=== PATIENT | male | born 1950 | race Caucasian/White ===

== ENCOUNTER → 2018-03-16 | Outpatient (CLI) | payer MEDICARE | END | disposition home or self-care (01) | LOC: SHCH 13:10 | PROVIDERS: ATTEND Internal Medicine Cardiovascular Disease | DX: I08.1 Rheumatic disorders of both mitral and tricuspid valves (principal); I11.9 Hypertensive heart disease without heart failure; Z95.2 Presence of prosthetic heart valve; Z95.1 Presence of aortocoronary bypass graft | CPT/HCPCS: 93306 ==

== ENCOUNTER 2018-05-11 12:15 | Observation (INO) | payer MEDICARE ==
[~2018-05-11] VITALS: Ht 175.3 cm; Wt 97.1 kg
[2018-05-11] MEDS ORDERED: ASPIRIN 325 MG TABLET ONE (12:22)
[2018-05-11] MEDS ORDERED: ASPIRIN 325MG EC TAB 325 MG TABLET.DR PO ONE (12:24)
[2018-05-11 12:43] LABS: BASOPHILS % (AUTO) 0.6 % (0.0-5.0); EOSINOPHILS % (AUTO) 4.9 % (0.0-8.0); HEMATOCRIT 43.1 % (42-54); MEAN CORPUSCULAR HEMOGLOBIN 28.9 pg (27.0-33.0); MEAN CORPUSCULAR HGB CONC 33.3 g/dL (32.0-36.0); MEAN CORPUSCULAR VOLUME 86.9 fL (79-99); MONOCYTES % (AUTO) 11.4 % (3.0-13.0); NEUTROPHILS % (AUTO) 62.1 % (40.0-77.0); NUCLEATED RED BLOOD CELLS 0.1 % (0.0-0.19); PLATELET COUNT (AUTO) 254 K/uL (130-400); RED BLOOD CELL COUNT(AUTO) 4.96 MIL/uL (4.50-6.20); RED CELL DISTRIBUTION WIDTH 15.9 % (11.0-15.5); WHITE BLOOD COUNT (AUTO) 8.8 K/uL (4.8-10.8)
[2018-05-11 12:55] LABS: CREATININE 2.3 mg/dL (0.5-1.5); POTASSIUM 4.1 mmol/L (3.5-5.1)
[2018-05-11 13:07] LABS: ALBUMIN 3.8 g/dL (3.5-5.0); BILIRUBIN,TOTAL 0.4 mg/dL (0.2-1.0); TOTAL PROTEIN, SERUM 7.9 g/dL (6.0-8.3)
[2018-05-11 13:14] LABS: INR 1.61 (0.85-1.15); PARTIAL THROMBOPLASTIN TIME 34.7 SEC (26.3-35.5); PROTHROMBIN TIME 16.7 SEC (9.6-11.6)
[2018-05-11] MEDS ORDERED: ENOXAPARIN SODIUM 100 MG/1 ML SQ ONE (15:16)
[2018-05-11] MEDS ORDERED: SODIUM CHLORIDE 0.9% 1000ML 1,000 ML IV SCH (15:16)
[2018-05-11] MEDS ORDERED: HYDRALAZINE HCL 20 MG/ML VIAL ONE (15:17)
[2018-05-11] MEDS ORDERED: ACETAMINOPHEN 325 MG TAB PO PRN ×2 (15:30)
[2018-05-11] MEDS ORDERED: MORPHINE SULFATE 2 MG/ML 1ML SYG IV PRN (15:30)
[2018-05-11] MEDS ORDERED: LACTULOSE 20 GM/30 ML UDCUP PO PRN (15:30)
[2018-05-11] MEDS ORDERED: HYDRALAZINE HCL 20 MG/ML VIAL IV PRN (15:30)
[2018-05-11] MEDS ORDERED: MORPHINE SULFATE 2 MG/ML 1ML SYG ONE ×2 (15:59→23:34)
[2018-05-11] MEDS ORDERED: NITROGLYCERIN 1GM/1 INCH PACKET TD ONE (15:59)
[2018-05-11] MEDS ORDERED: ONDANSETRON HCL 4 MG/2 ML VIAL ONE (15:59)
[2018-05-11] MEDS ORDERED: SODIUM CHLORIDE 0.9% 1000ML 1,000 ML IV ONE (15:59)
[2018-05-11 19:03] LABS: CREATINE KINASE, TOTAL 86 U/L (21-232); MYOGLOBIN 63 ng/mL (10-92); TROPONIN I < 0.04 ng/mL (0.00-0.06)
[2018-05-11] MEDS ORDERED: METOPROLOL TARTRATE 25 MG TAB PO SCH (21:00)
[2018-05-11] MEDS ORDERED: FAMOTIDINE/PF 20 MG/2 ML VIAL IV SCH (21:00)
[2018-05-11] MEDS ORDERED: WARFARIN SODIUM 1 MG TAB PO ONE (22:00)
[2018-05-11] MEDS ORDERED: ATORVASTATIN CALCIUM 40 MG TABLET ONE (22:01)
[2018-05-11] MEDS ORDERED: FAMOTIDINE 20MG TAB 20 MG TAB ONE (22:01)
[2018-05-11] MEDS ORDERED: CARVEDILOL 12.5 MG TABLET PO ONE (22:01)
[2018-05-11] MEDS ORDERED: METOPROLOL TARTRATE 25 MG TAB ONE (22:11)
--- NOTE | 2018-05-12 | NUR ---
ASSESSMENT PATIENT TRANSFERRED FROM [facility]. DX: CHEST PAIN. PATIENT DENIES CHEST PAIN AND SHORTNESS OF BREATH. O2 @ 2L - NASAL CANNULA. RESPIRATIONS UNLABORED. SINUS BRADYCARDIA / SINUS RHYTHM HR 58 - 60'S. SEE DOCUMENTATION FOR FULL ASSESSMENT. CALL LIGHT WITHIN REACH. INSTRUCTED PATIENT TO CALL IF ASSISTANCE IS NEEDED.
[2018-05-12 00:48] VITALS: BP 118/63
[2018-05-12] MEDS: NITROGLYCERIN 1GM/1 INCH PACKET TD SCH ×4 (00:53→15:09)
[2018-05-12] MEDS ORDERED: CARV12.511 PO (02:10)
[2018-05-12] MEDS ORDERED: PRED5TAB PO (02:10)
[2018-05-12] MEDS ORDERED: ATOR80TA PO (02:10)
[2018-05-12] MEDS ORDERED: POLY17PO4 PO (02:10)
[2018-05-12] MEDS ORDERED: WARF3TAB59 PO (02:10)
[2018-05-12] MEDS ORDERED: AMLO5TAB9 PO (02:10)
[2018-05-12] MEDS ORDERED: NITR0.4T SL (02:10)
[2018-05-12] MEDS ORDERED: FURO20TA4 PO (02:10)
[2018-05-12] MEDS ORDERED: PREDNISONE 5 MG TABLET PO PRN (02:45)
[2018-05-12] MEDS ORDERED: NITROGLYCERIN 0.4 MG SL TAB SL PRN (02:45)
[2018-05-12 03:00] VITALS: BP 130/69
[2018-05-12 03:40] LABS: BASOPHILS % (AUTO) 0.2 % (0.0-5.0); EOSINOPHILS % (AUTO) 4.2 % (0.0-8.0); HEMATOCRIT 38.8 % (42-54); LYMPHOCYTES % (AUTO) 17.6 % (21.0-51.0); MEAN CORPUSCULAR HEMOGLOBIN 29.2 pg (27.0-33.0); MEAN CORPUSCULAR HGB CONC 33.6 g/dL (32.0-36.0); MEAN CORPUSCULAR VOLUME 86.9 fL (79-99); MONOCYTES % (AUTO) 10.9 % (3.0-13.0); NEUTROPHILS % (AUTO) 67.1 % (40.0-77.0); NUCLEATED RED BLOOD CELLS 0.1 % (0.0-0.19); PLATELET COUNT (AUTO) 237 K/uL (130-400); RED BLOOD CELL COUNT(AUTO) 4.47 MIL/uL (4.50-6.20); RED CELL DISTRIBUTION WIDTH 15.8 % (11.0-15.5)
[2018-05-12 04:09] LABS: ALANINE AMINOTRANSFERASE 14 U/L (12-78); ALBUMIN 3.3 g/dL (3.5-5.0); ASPARTATE AMINOTRANSFERASE 17 U/L (10-37); BILIRUBIN,TOTAL 0.4 mg/dL (0.2-1.0); CARBON DIOXIDE 27 mmol/L (21-32); CHLORIDE 106 mmol/L (101-111); CHOLESTEROL 168 mg/dL (<200); CREATINE KINASE, TOTAL 63 U/L (21-232); CREATININE 2.4 mg/dL (0.5-1.5); GLOMERULAR FILTR. RATE CALC 29 mL/min (>60); GLUCOSE,RANDOM 113 mg/dL (70-105); HDL CHOLESTEROL 38 mg/dL (29-71); LDL DIRECT 122 mg/dL (0-99); MYOGLOBIN 67 ng/mL (10-92); POTASSIUM 4.2 mmol/L (3.5-5.1); SODIUM SERUM 141 mmol/L (136-145); TOTAL PROTEIN, SERUM 6.7 g/dL (6.0-8.3); TRIGLYCERIDES 86 mg/dL (30-200); TROPONIN I < 0.04 ng/mL (0.00-0.06); UREA NITROGEN, BLOOD 46 mg/dL (7-18)
[2018-05-12 05:42] LABS: INR 1.57 (0.85-1.15); PROTHROMBIN TIME 16.3 SEC (9.6-11.6)
[2018-05-12] MEDS: ONDANSETRON HCL 4 MG/2 ML VIAL IV PRN ×2 (05:59→12:52)
[2018-05-12 07:00] VITALS: BP 144/69
--- NOTE | 2018-05-12 07:15 | NUR ---
MD VISIT DR TABOR IN TO SEE PT. UPDATED ON PT'S STATUS & PLAN OF CARE REVIEWED. NEW ORDERS RECEIVED. PT INFORMED TO MAINTAIN NPO FOR TESSY SCAN TO BE DONE TO DAY. STATES UNDERSTANDING.
--- NOTE | 2018-05-12 08:45 | NUR ---
AM ASSESSMENT PT SITTING UP IN BED, RESTING. A/O X 3. NO SOB. NO DISTRESS NOTED. DENIES CHEST PAIN OR DISCOMFORT. DENIES PALPITATIONS. TELE: SB 50s. DENIES N/V AND/OR DIARRHEA @ THIS TIME. NPO STATUS REINFORCED. PENDING TO HAVE TESSY SCAN & 2D ECHO. UP W/ASSISTANCE. INSTRUCTED TO CALL FOR ASSISTANCE. CALL DAWSON W/IN REACH.
[2018-05-12] MEDS ORDERED: POLYETHYLENE GLYCOL 3350 17 GM POWD.PACK PO SCH (09:00)
[2018-05-12] MEDS ORDERED: AMLODIPINE BESYLATE 5 MG TAB PO SCH (09:00)
[2018-05-12] MEDS ORDERED: ASPIRIN 325 MG TABLET PO SCH (09:00)
[2018-05-12] MEDS ORDERED: CARVEDILOL 12.5 MG TABLET PO SCH (09:00)
[2018-05-12] MEDS ORDERED: FUROSEMIDE 20 MG TABLET PO SCH (09:00)
[2018-05-12] MEDS ORDERED: FAMOTIDINE 20MG TAB 20 MG TAB PO SCH (09:00)
[2018-05-12] MEDS ORDERED: ENOXAPARIN SODIUM 40 MG/0.4 ML SYRINGE SQ SCH (09:00)
[2018-05-12] MEDS ORDERED: PHARMACY COMMUNICATION MISC SCH (11:45)
[2018-05-12] MEDS ORDERED: REGADENOSON 0.4 MG/5 ML PF SYG IVP SCH (12:00)
[2018-05-12 13:30] VITALS: BP 141/82
[2018-05-12 16:00] VITALS: BP 149/70
[2018-05-12] MEDS ORDERED: WARFARIN SODIUM 1 MG TAB PO SCH ×2 (16:00→17:00)
--- NOTE | 2018-05-12 17:24 | NUR ---
MD NOTIFICATION CALL RECEIVED FROM DR TABOR. TESSY SCAN NORMAL & 2D ECHO WNL. PT MAY BE DISCHARGED HOME TODAY. HOME MEDICATIONS TO BE CONTINUED. F/U W/DR TABOR IN 1 WEEK.
--- NOTE | 2018-05-12 18:05 | NUR ---
DISCHARGE VERBAL & WRITTEN DISCHARGE INSTRUCTIONS REVIEWED & GIVEN TO PT. QUESTIONS ENCOURAGED & CLARIFIED. PROPER CARE & ACTIVITY AFTER TESSY SCAN REVIEWED. PT TO CONTINUE HOME MEDICATIONS. INFORMED PT TO F/U IN 1 WEEK W/DR TAOBR. TELE MAURI REMOVED. IV DC'D. PT & TO GATHER PERSONAL BELONGINGS. WILL NOTIFY STAFF WHEN READY TO BE TAKEN TO PRIVATE VEHICLE.
--- NOTE | 2018-05-12 18:15 | NUR ---
DISCHARGE PT TAKEN TO PRIVATE VEHICLE VIA WC BY MYSELF. AWAITING IN VEHICLE. NO DISTRESS NOTED.
[2018-05-12] MEDS ORDERED: ATORVASTATIN CALCIUM 40 MG TABLET PO SCH (21:00)
== END 2018-05-12 18:15 | disposition home or self-care (01) ==
LOC: EDH 12:15 → EDHIP 15:16 → 2AH 05-12 00:40
PROVIDERS: ADMIT Internal Medicine; ATTEND Internal Medicine
DX: R07.89 Other chest pain (principal); I12.9 Hypertensive chronic kidney disease with stage 1 through stage 4 chronic kidney disease, or unspecified chronic kidney disease; N18.3 Chronic kidney disease, stage 3 (moderate); E78.5 Hyperlipidemia, unspecified; I25.10 Atherosclerotic heart disease of native coronary artery without angina pectoris; K21.9 Gastro-esophageal reflux disease without esophagitis; D68.59 Other primary thrombophilia; G47.33 Obstructive sleep apnea (adult) (pediatric); I16.0 Hypertensive urgency; I25.2 Old myocardial infarction; I35.0 Nonrheumatic aortic (valve) stenosis; I73.9 Peripheral vascular disease, unspecified; J90 Pleural effusion, not elsewhere classified; Z79.01 Long term (current) use of anticoagulants; Z82.49 Family history of ischemic heart disease and other diseases of the circulatory system; Z95.1 Presence of aortocoronary bypass graft; Z95.2 Presence of prosthetic heart valve; Z95.5 Presence of coronary angioplasty implant and graft
CPT/HCPCS: 36415 ×2; 71045; 78452; 80053 ×2; 80061; 82550 ×3; 83735; 83874 ×3; 84484 ×4; 85025 ×2; 85610 ×2; 85730; 93005 ×3; 93017; 93306; 96374; 96376; 99291; A9500 ×2; G0378 ×27; J0360; J1650; J2405 ×3; J2785; J3490; J7030

== ENCOUNTER 2019-06-25 05:11 | Emergency (ER) | payer MEDICARE, OTHER ==
[~2019-06-25 05:11] MED LIST: AMLO5TAB9 PO; ATOR80TA PO; CARV12.511 PO; FURO20TA4 PO; NITR0.4T SL; POLY17PO4 PO; PRED5TAB PO; WARF3TAB59 PO
[2019-06-25] MEDS ORDERED: TETANUS/DIPHTHERIA TOXOID [ADULT] 0.5 ML VIAL IM ONE (05:34)
[2019-06-25 05:49] LABS: BASOPHILS % (AUTO) 0.6 % (0.0-5.0); EOSINOPHILS % (AUTO) 3.1 % (0.0-8.0); LYMPHOCYTES % (AUTO) 15.3 % (21.0-51.0); MEAN CORPUSCULAR HEMOGLOBIN 28.8 pg (27.0-33.0); MEAN CORPUSCULAR HGB CONC 31.9 g/dL (32.0-36.0); MEAN CORPUSCULAR VOLUME 90.3 fL (79-99); MONOCYTES % (AUTO) 9.1 % (3.0-13.0); NEUTROPHILS % (AUTO) 71.3 % (40.0-77.0); PLATELET COUNT (AUTO) 177 K/uL (130-400); RED BLOOD CELL COUNT(AUTO) 4.65 MIL/uL (4.50-6.20); RED CELL DISTRIBUTION WIDTH 15.4 % (11.0-15.5); WHITE BLOOD COUNT (AUTO) 12.1 K/uL (4.8-10.8)
[2019-06-25] MEDS ORDERED: OCTYL 2-CYANOACRYLATE 1 EACH TP ONE (05:50)
[2019-06-25 06:01] LABS: CREATININE 1.5 mg/dL (0.5-1.5); POTASSIUM 4.3 mmol/L (3.5-5.1)
[2019-06-25 06:03] LABS: INR 2.72 (0.85-1.15); PARTIAL THROMBOPLASTIN TIME 36.4 SEC (26.3-35.5); PROTHROMBIN TIME 28.3 SEC (9.6-11.6)
[2019-06-25] MEDS ORDERED: HYDRALAZINE HCL 20 MG/ML VIAL ONE (06:28)
[2019-06-25] MEDS ORDERED: LABETALOL 20 MG/4 ML DISP.SYRIN IV ONE (06:50)
== END 2019-06-25 08:11 | disposition home or self-care (01) ==
LOC: EDH 05:11
DX: S41.112A Laceration without foreign body of left upper arm, initial encounter (principal); S09.90XA Unspecified injury of head, initial encounter; E78.5 Hyperlipidemia, unspecified; I10 Essential (primary) hypertension; Z87.891 Personal history of nicotine dependence; W18.39XA Other fall on same level, initial encounter; Y93.01 Activity, walking, marching and hiking; Y92.89 Other specified places as the place of occurrence of the external cause; Y99.8 Other external cause status
CPT/HCPCS: 12031; 36415; 70450; 80048; 85025; 85610; 85730; 96374; 96375; 99284; J0360; 90714

== ENCOUNTER → 2019-12-01 | Outpatient (CLI) | payer MEDICARE ==
[2019-12-01 12:28] LABS: CREATININE 1.5 mg/dL (0.5-1.5)
== END | disposition home or self-care (01) ==
LOC: LAB 11:14
PROVIDERS: ATTEND Internal Medicine
DX: R91.8 Other nonspecific abnormal finding of lung field (principal)
CPT/HCPCS: 36415; 82565; 84520; A6260

== ENCOUNTER → 2019-12-04 | Outpatient (CLI) | payer MEDICARE ==
[~2019-12-04] MED LIST changes: +DIATR MEGLU/DIATRIZOATE SODIUM 30 ML BOTTLE ONE; +IOHEXOL-350 50ML VIAL IV ONE
== END | disposition home or self-care (01) ==
LOC: RAH 12:39
PROVIDERS: ATTEND Internal Medicine
DX: J98.11 Atelectasis (principal); M47.814 Spondylosis without myelopathy or radiculopathy, thoracic region; I51.7 Cardiomegaly; R91.8 Other nonspecific abnormal finding of lung field
CPT/HCPCS: 71260; Q9967; Q9963

== ENCOUNTER → 2019-12-08 | Outpatient (CLI) | payer MEDICARE ==
[~2019-12-08] MED LIST changes: -DIATR MEGLU/DIATRIZOATE SODIUM 30 ML BOTTLE ONE; -IOHEXOL-350 50ML VIAL IV ONE
== END | disposition home or self-care (01) ==
LOC: RAH 07:46
PROVIDERS: ATTEND Internal Medicine
DX: I08.3 Combined rheumatic disorders of mitral, aortic and tricuspid valves (principal); I50.22 Chronic systolic (congestive) heart failure
CPT/HCPCS: 93306; 93356

== ENCOUNTER 2020-06-16 22:34 | Inpatient (IN) | payer MEDICARE ==
[~2020-06-16] VITALS: Ht 175.3 cm; Wt 92.3 kg
[~2020-06-16 22:34] MED LIST changes: +AMLO-257 PO; -AMLO5TAB9 PO; +WARF-67 PO; -WARF3TAB59 PO
[2020-06-16] MEDS ORDERED: ASPIRIN 325 MG TABLET ONE (23:12)
[2020-06-16] MEDS ORDERED: NITROGLYCERIN 1GM OINT 1 INCH/1GM TD ONE (23:12)
[2020-06-16 23:48] LABS: BASOPHILS % (AUTO) 0.2 % (0.0-5.0); EOSINOPHILS % (AUTO) 0.2 % (0.0-8.0); HEMATOCRIT 34.4 % (42-54); LYMPHOCYTES % (AUTO) 2.6 % (21.0-51.0); MEAN CORPUSCULAR HEMOGLOBIN 22.4 pg (27.0-33.0); MEAN CORPUSCULAR HGB CONC 29.1 g/dL (32.0-36.0); MEAN CORPUSCULAR VOLUME 77.1 fL (79-99); MONOCYTES % (AUTO) 3.5 % (3.0-13.0); NEUTROPHILS % (AUTO) 90.4 % (40.0-77.0); NUCLEATED RED BLOOD CELLS 0.6 % (0.0-0.19); PLATELET COUNT (AUTO) 296 K/uL (130-400); RED BLOOD CELL COUNT(AUTO) 4.46 MIL/uL (4.50-6.20); RED CELL DISTRIBUTION WIDTH 19.7 % (11.0-15.5); WHITE BLOOD COUNT (AUTO) 14.4 K/uL (4.8-10.8)
[2020-06-17 00:02] LABS: CREATININE 2.6 mg/dL (0.5-1.5); POTASSIUM 4.3 mmol/L (3.5-5.1)
[2020-06-17 00:03] LABS: INR 2.85 (0.85-1.15); PROTHROMBIN TIME 28.2 SEC (9.6-11.6)
[2020-06-17 00:07] LABS: ALBUMIN 2.8 g/dL (3.5-5.0); BILIRUBIN,TOTAL 0.5 mg/dL (0.2-1.0); CRP QUANTITATIVE 90.2 mg/L (0.00-9.0); TOTAL PROTEIN, SERUM 6.2 g/dL (6.0-8.3)
[2020-06-17 00:15] LABS: B-TYPE NATRIURETIC PEPTIDE 1030 pg/mL (0-100)
[2020-06-17 00:39] LABS: PARTIAL THROMBOPLASTIN TIME 37.3 SEC (26.3-35.5)
[2020-06-17] MEDS ORDERED: FUROSEMIDE 20MG VIAL ONE (00:50)
[2020-06-17] MEDS ORDERED: MORPHINE 2 MG SYG ONE (00:50)
[2020-06-17 01:23] LABS: BILIRUBIN,URINE Negative (NEGATIVE); COLOR,URINE Yellow (YELLOW); GLUCOSE, URINE (UA) Negative (NEGATIVE); KETONES,URINE Trace mg/dL (NEGATIVE); LEUKOCYTE ESTERASE ,URINE Negative (NEGATIVE); NITRATE,URINE Negative (NEGATIVE); OCCULT BLOOD,URINE Negative (NEGATIVE); PROTEIN,URINE POS 2+ mg/dL (NEGATIVE)
[2020-06-17 01:26] LABS: APPEARANCE,URINE CLEAR (CLEAR)
[2020-06-17 04:46] LABS: BASOPHILS % (AUTO) 0.2 % (0.0-5.0); EOSINOPHILS % (AUTO) 0.1 % (0.0-8.0); HEMATOCRIT 32.5 % (42-54); LYMPHOCYTES % (AUTO) 2.4 % (21.0-51.0); MEAN CORPUSCULAR HEMOGLOBIN 22.7 pg (27.0-33.0); MEAN CORPUSCULAR HGB CONC 29.8 g/dL (32.0-36.0); MEAN CORPUSCULAR VOLUME 75.9 fL (79-99); MONOCYTES % (AUTO) 2.8 % (3.0-13.0); NEUTROPHILS % (AUTO) 91.9 % (40.0-77.0); NUCLEATED RED BLOOD CELLS 0.3 % (0.0-0.19); PLATELET COUNT (AUTO) 265 K/uL (130-400); RED BLOOD CELL COUNT(AUTO) 4.28 MIL/uL (4.50-6.20); RED CELL DISTRIBUTION WIDTH 19.8 % (11.0-15.5); WHITE BLOOD COUNT (AUTO) 14.4 K/uL (4.8-10.8)
[2020-06-17 05:06] LABS: INR 3.18 (0.85-1.15); PROTHROMBIN TIME 31.2 SEC (9.6-11.6)
[2020-06-17 05:07] LABS: PARTIAL THROMBOPLASTIN TIME 35.3 SEC (26.3-35.5)
[2020-06-17 05:14] LABS: CREATININE 2.3 mg/dL (0.5-1.5); POTASSIUM 4.5 mmol/L (3.5-5.1)
[2020-06-17 05:16] LABS: ALBUMIN 2.6 g/dL (3.5-5.0); BILIRUBIN,TOTAL 0.4 mg/dL (0.2-1.0); TOTAL PROTEIN, SERUM 5.9 g/dL (6.0-8.3)
[2020-06-17] MEDS ORDERED: CEFTRIAXONE 1G VIAL ONE (08:55)
[2020-06-17] MEDS: CEFTRIAXONE 1G VIAL IVP SCH (09:00)
[2020-06-17] MEDS ORDERED: ISOSORBIDE MONO 30MG SR TAB PO SCH (10:15)
[2020-06-17] MEDS ORDERED: CLOPIDOGREL 300MG TAB PO SCH (10:15)
[2020-06-17] MEDS ORDERED: NITROGLYCERIN 0.4 MG SL TAB SL PRN (10:15)
[2020-06-17] MEDS ORDERED: CLOPIDOGREL 300MG TAB ONE (11:02)
[2020-06-17] MEDS ORDERED: ISOSORBIDE MONO 30MG SR TAB PO ONE (11:03)
[2020-06-17] MEDS ORDERED: CARVEDILOL 12.5 MG TABLET PO ONE (12:10)
[2020-06-17] MEDS ORDERED: METOPROLOL TARTRATE 1 MG/ML 5ML VIAL IV ONE (12:10)
[2020-06-17 17:15] VITALS: BP 146/86
[2020-06-17 20:30] VITALS: BP 122/62
[2020-06-17] MEDS: CARVEDILOL 12.5 MG TABLET PO SCH (20:54)
[2020-06-17] MEDS: ATORVASTATIN 40 MG TABLET PO SCH (20:54)
[2020-06-17 23:32] VITALS: BP 105/65
[2020-06-18 05:04] VITALS: BP 124/79
[2020-06-18 05:04] LABS: MEAN CORPUSCULAR HEMOGLOBIN 22.9 pg (27.0-33.0); MEAN CORPUSCULAR HGB CONC 29.4 g/dL (32.0-36.0); MEAN CORPUSCULAR VOLUME 78.1 fL (79-99); NUCLEATED RED BLOOD CELLS 0.2 % (0.0-0.19); PLATELET COUNT (AUTO) 273 K/uL (130-400); RED BLOOD CELL COUNT(AUTO) 3.97 MIL/uL (4.50-6.20); RED CELL DISTRIBUTION WIDTH 19.6 % (11.0-15.5); WHITE BLOOD COUNT (AUTO) 12.7 K/uL (4.8-10.8)
[2020-06-18 05:14] LABS: INR 3.43 (0.85-1.15); PROTHROMBIN TIME 33.4 SEC (9.6-11.6)
[2020-06-18 05:25] LABS: CREATININE 2.1 mg/dL (0.5-1.5); POTASSIUM 3.9 mmol/L (3.5-5.1)
[2020-06-18 05:59] LABS: BAND NEUTROPHILS % (MANUAL) 12 % (0-2); LYMPHOCYTES % (MANUAL) 8 % (22-44); MAN.DIFF COMMENT-IMPRESSION MANUAL DIFFERENTIAL; MONOCYTES % (MANUAL) 5 % (2-9); PLATELET MORPHOLOGY COMMENT ADEQUATE; SEGMENTED NEUTROPHILS % 75 % (40-70)
[2020-06-18 08:00] VITALS: BP 120/74
[2020-06-18] MEDS: CARVEDILOL 12.5 MG TABLET PO SCH (08:51)
[2020-06-18] MEDS: CLOPIDOGREL 75MG TAB PO SCH (08:51)
[2020-06-18] MEDS: AMLODIPINE 5 MG TAB PO SCH (08:51)
[2020-06-18] MEDS: FUROSEMIDE 20 MG TABLET PO SCH (08:52)
[2020-06-18] MEDS: ISOSORBIDE MONO 30MG SR TAB PO SCH (08:52)
[2020-06-18] MEDS: CEFTRIAXONE 1G VIAL IVP SCH (08:52)
[2020-06-18] MEDS: ASPIRIN 81MG CHEW TAB PO SCH (08:52)
[2020-06-18] MEDS: POLYETHYLENE GLYCOL 3350 17 GM POWD.PACK PO SCH (08:52)
[2020-06-18] MEDS ORDERED: CEFTRIAXONE 500MG VIAL IV SCH (09:00)
[2020-06-18 11:30] VITALS: BP 115/64
[2020-06-18 16:00] VITALS: BP 121/68
[2020-06-18] MEDS ORDERED: CARVEDILOL 25 MG TABLET PO ONE (19:15)
[2020-06-18] MEDS: ATORVASTATIN 40 MG TABLET PO SCH (20:03)
[2020-06-18] MEDS: CARVEDILOL 25 MG TABLET PO SCH (20:03)
[2020-06-18 20:35] VITALS: BP 113/81
[2020-06-18 23:37] VITALS: BP 136/78
[2020-06-19 03:23] VITALS: BP 125/63
[2020-06-19 04:31] LABS: BASOPHILS % (AUTO) 0.2 % (0.0-5.0); EOSINOPHILS % (AUTO) 1.7 % (0.0-8.0); HEMATOCRIT 29.2 % (42-54); LYMPHOCYTES % (AUTO) 7.5 % (21.0-51.0); MEAN CORPUSCULAR HEMOGLOBIN 22.6 pg (27.0-33.0); MEAN CORPUSCULAR HGB CONC 29.5 g/dL (32.0-36.0); MEAN CORPUSCULAR VOLUME 76.8 fL (79-99); MONOCYTES % (AUTO) 6.5 % (3.0-13.0); NEUTROPHILS % (AUTO) 80.7 % (40.0-77.0); NUCLEATED RED BLOOD CELLS 0.2 % (0.0-0.19); PLATELET COUNT (AUTO) 261 K/uL (130-400); RED CELL DISTRIBUTION WIDTH 19.9 % (11.0-15.5); WHITE BLOOD COUNT (AUTO) 9.8 K/uL (4.8-10.8)
[2020-06-19 04:44] LABS: INR 2.5 (0.85-1.15); PROTHROMBIN TIME 25.1 SEC (9.6-11.6)
[2020-06-19 04:45] LABS: CREATININE 1.9 mg/dL (0.5-1.5); MAGNESIUM 2.2 mg/dL (1.80-2.40)
[2020-06-19] MEDS ORDERED: HEPARIN 5,000 UNIT VIAL SQ PRN (07:00)
[2020-06-19 07:53] VITALS: BP 134/79
[2020-06-19] MEDS ORDERED: HEPARIN 10,000 UNIT/10ML (1,000 UNIT/ML) VIAL IV SCH (08:15)
[2020-06-19] MEDS ORDERED: HEPARIN 5,000 UNIT VIAL IV SCH (08:45)
[2020-06-19] MEDS ORDERED: HEPARIN 25,000 UNITS/250ML D5W 250 ML IV ONE (08:59)
[2020-06-19] MEDS: ASPIRIN 81MG CHEW TAB PO SCH (10:27)
[2020-06-19] MEDS: POLYETHYLENE GLYCOL 3350 17 GM POWD.PACK PO SCH (10:27)
[2020-06-19] MEDS: PANTOPRAZOLE 40 MG TAB DR PO SCH ×2 (10:27→16:03)
[2020-06-19] MEDS: CLOPIDOGREL 75MG TAB PO SCH (10:28)
[2020-06-19] MEDS: AMLODIPINE 5 MG TAB PO SCH (10:28)
[2020-06-19] MEDS: CARVEDILOL 25 MG TABLET PO SCH ×2 (10:28→20:33)
[2020-06-19] MEDS: FUROSEMIDE 20 MG TABLET PO SCH (10:29)
[2020-06-19] MEDS: ISOSORBIDE MONO 30MG SR TAB PO SCH (10:29)
[2020-06-19 11:15] VITALS: BP 117/80
[2020-06-19] MEDS: CEFTRIAXONE 1G VIAL IVP SCH (13:13)
[2020-06-19 15:00] VITALS: BP 129/63
[2020-06-19 19:35] VITALS: BP 143/74
[2020-06-19] MEDS: ATORVASTATIN 40 MG TABLET PO SCH (20:33)
[2020-06-20] VITALS (7 sets, daily range): BP systolic 102–146; BP diastolic 48–78
[2020-06-20] MEDS: HEPARIN 25,000 UNITS/250ML D5W 250 ML IV SCH ×2 (00:14→15:32)
[2020-06-20 05:26] LABS: BASOPHILS % (AUTO) 0.4 % (0.0-5.0); EOSINOPHILS % (AUTO) 1.8 % (0.0-8.0); LYMPHOCYTES % (AUTO) 6.4 % (21.0-51.0); MEAN CORPUSCULAR HEMOGLOBIN 22.4 pg (27.0-33.0); MEAN CORPUSCULAR VOLUME 77.1 fL (79-99); MONOCYTES % (AUTO) 7.4 % (3.0-13.0); NUCLEATED RED BLOOD CELLS 0.2 % (0.0-0.19); PLATELET COUNT (AUTO) 259 K/uL (130-400); RED BLOOD CELL COUNT(AUTO) 3.89 MIL/uL (4.50-6.20); RED CELL DISTRIBUTION WIDTH 20.1 % (11.0-15.5); WHITE BLOOD COUNT (AUTO) 9.8 K/uL (4.8-10.8)
[2020-06-20 05:34] LABS: POTASSIUM 4.1 mmol/L (3.5-5.1)
[2020-06-20 05:41] LABS: INR 2.15 (0.85-1.15); PROTHROMBIN TIME 21.9 SEC (9.6-11.6)
[2020-06-20 05:56] LABS: PARTIAL THROMBOPLASTIN TIME 49.3 SEC (26.3-35.5)
[2020-06-20] MEDS: ASPIRIN 81MG CHEW TAB PO SCH (09:17)
[2020-06-20] MEDS: ISOSORBIDE MONO 30MG SR TAB PO SCH (09:17)
[2020-06-20] MEDS: CARVEDILOL 25 MG TABLET PO SCH ×2 (09:18→20:51)
[2020-06-20] MEDS: AMLODIPINE 5 MG TAB PO SCH (09:18)
[2020-06-20] MEDS: CLOPIDOGREL 75MG TAB PO SCH (09:18)
[2020-06-20] MEDS: PANTOPRAZOLE 40 MG TAB DR PO SCH ×2 (09:18→17:15)
[2020-06-20] MEDS: FUROSEMIDE 20 MG TABLET PO SCH (09:19)
[2020-06-20] MEDS: POLYETHYLENE GLYCOL 3350 17 GM POWD.PACK PO SCH (09:19)
[2020-06-20] MEDS: CEFTRIAXONE 1G VIAL IVP SCH (09:19)
[2020-06-20 10:32] LABS: INR 2.15 (0.85-1.15); PROTHROMBIN TIME 21.9 SEC (9.6-11.6)
[2020-06-20 13:17] LABS: PARTIAL THROMBOPLASTIN TIME 44.4 SEC (26.3-35.5)
[2020-06-20] MEDS: ATORVASTATIN 40 MG TABLET PO SCH (20:51)
[2020-06-21] MEDS: ONDANSETRON 4MG INJ IVP SCH ×2 (01:31→12:31)
[2020-06-21 03:30] LABS: CREATININE 1.9 mg/dL (0.5-1.5)
[2020-06-21 03:37] LABS: INR 1.91 (0.85-1.15); PROTHROMBIN TIME 19.6 SEC (9.6-11.6)
[2020-06-21 03:51] LABS: PARTIAL THROMBOPLASTIN TIME 47.5 SEC (26.3-35.5)
[2020-06-21 04:20] VITALS: BP 101/54
[2020-06-21] MEDS: PANTOPRAZOLE 40 MG TAB DR PO SCH ×2 (06:22→15:29)
[2020-06-21 08:00] VITALS: BP 97/54
[2020-06-21] MEDS: POLYETHYLENE GLYCOL 3350 17 GM POWD.PACK PO SCH (09:00)
[2020-06-21] MEDS: AMLODIPINE 5 MG TAB PO SCH (09:00)
[2020-06-21] MEDS: CARVEDILOL 25 MG TABLET PO SCH (09:00)
[2020-06-21 09:36] LABS: INR 1.87 (0.85-1.15); PROTHROMBIN TIME 19.3 SEC (9.6-11.6)
[2020-06-21] MEDS: CEFTRIAXONE 1G VIAL IVP SCH (09:37)
[2020-06-21] MEDS: CLOPIDOGREL 75MG TAB PO SCH (09:39)
[2020-06-21] MEDS: FUROSEMIDE 20 MG TABLET PO SCH (09:39)
[2020-06-21] MEDS: ASPIRIN 81MG CHEW TAB PO SCH (09:40)
[2020-06-21 10:15] LABS: PARTIAL THROMBOPLASTIN TIME 48.2 SEC (26.3-35.5)
[2020-06-21 12:00] VITALS: BP 117/40
[2020-06-21] MEDS ORDERED: ONDANSETRON 4MG INJ IVP PRN (12:00)
[2020-06-21] MEDS ORDERED: CARVEDILOL 12.5 MG TABLET PO SCH ×2 (15:00→21:00)
[2020-06-21] MEDS: ISOSORBIDE MONO 30MG SR TAB PO SCH (15:30)
[2020-06-21 16:00] VITALS: BP 118/68
[2020-06-21 20:28] VITALS: BP 118/75
[2020-06-21] MEDS: ATORVASTATIN 40 MG TABLET PO SCH (21:09)
[2020-06-22 00:28] VITALS: BP 113/64
[2020-06-22] MEDS: ONDANSETRON 4MG INJ IVP SCH (02:47)
[2020-06-22 04:36] VITALS: BP 118/60
[2020-06-22] MEDS: HEPARIN 25,000 UNITS/250ML D5W 250 ML IV SCH (05:08)
[2020-06-22 06:04] LABS: INR 1.83 (0.85-1.15); PROTHROMBIN TIME 18.3 SEC (9.6-11.6)
[2020-06-22 06:18] LABS: PARTIAL THROMBOPLASTIN TIME > 120.0 SEC (26.3-35.5)
[2020-06-22] MEDS ORDERED: METOCLOPRAMIDE 10 MG/2 ML VIAL ONE (06:44)
[2020-06-22] MEDS ORDERED: METOCLOPRAMIDE 10 MG/2 ML VIAL IVP SCH (07:16)
[2020-06-22 07:30] VITALS: BP 123/54
[2020-06-22] MEDS ORDERED: CARVEDILOL 12.5 MG TABLET PO SCH (09:00)
== END 2020-06-22 11:42 | disposition expired ==
LOC: EDH 22:34 → EDHIP 06-17 01:36 → 4AH 06-17 17:22 → 4DH 06-19 13:43
PROVIDERS: ADMIT Internal Medicine; ATTEND Internal Medicine
PROC: 5A09357 Assistance with Respiratory Ventilation, Less than 24 Consecutive Hours, Continuous Positive Airway Pressure (ICD-10-PCS; principal; 2020-06-17)
PROC: 5A09357 Assistance with Respiratory Ventilation, Less than 24 Consecutive Hours, Continuous Positive Airway Pressure (ICD-10-PCS; 2020-06-18)
PROC: 5A09357 Assistance with Respiratory Ventilation, Less than 24 Consecutive Hours, Continuous Positive Airway Pressure (ICD-10-PCS; 2020-06-19)
PROC: 5A09357 Assistance with Respiratory Ventilation, Less than 24 Consecutive Hours, Continuous Positive Airway Pressure (ICD-10-PCS; 2020-06-20)
PROC: 5A09357 Assistance with Respiratory Ventilation, Less than 24 Consecutive Hours, Continuous Positive Airway Pressure (ICD-10-PCS; 2020-06-22)
PROC: 0BH17EZ Insertion of Endotracheal Airway into Trachea, Via Natural or Artificial Opening (ICD-10-PCS; 2020-06-22)
DX: I21.4 Non-ST elevation (NSTEMI) myocardial infarction (principal); I50.43 Acute on chronic combined systolic (congestive) and diastolic (congestive) heart failure; I48.21 Permanent atrial fibrillation; N17.9 Acute kidney failure, unspecified; I13.0 Hypertensive heart and chronic kidney disease with heart failure and stage 1 through stage 4 chronic kidney disease, or unspecified chronic kidney disease; N18.32 Chronic kidney disease, stage 3b; M10.9 Gout, unspecified; E78.5 Hyperlipidemia, unspecified; G47.33 Obstructive sleep apnea (adult) (pediatric); K21.9 Gastro-esophageal reflux disease without esophagitis; D72.829 Elevated white blood cell count, unspecified; E88.09 Other disorders of plasma-protein metabolism, not elsewhere classified; I73.9 Peripheral vascular disease, unspecified; I35.0 Nonrheumatic aortic (valve) stenosis; D64.9 Anemia, unspecified; R60.0 Localized edema; I25.10 Atherosclerotic heart disease of native coronary artery without angina pectoris; Z20.822 Contact with and (suspected) exposure to COVID-19; I25.2 Old myocardial infarction; Z79.01 Long term (current) use of anticoagulants; Z79.82 Long term (current) use of aspirin; Z79.02 Long term (current) use of antithrombotics/antiplatelets; Z79.899 Other long term (current) drug therapy; Z95.2 Presence of prosthetic heart valve; Z95.1 Presence of aortocoronary bypass graft; Z87.11 Personal history of peptic ulcer disease; Z86.73 Personal history of transient ischemic attack (TIA), and cerebral infarction without residual deficits; Z82.49 Family history of ischemic heart disease and other diseases of the circulatory system
CPT/HCPCS: 31500; 36415; 71045; 80048; 80053; 81003; 82550; 82948; 83605; 83735; 83880; 84145; 84484; 85025; 85610; 85730; 86140; 87040; 87426; 92950; 93005; 93306; 93356; 99291; G0378; J0696; J1644; J1940; J2405; J2765; J3490; U0003